=== PATIENT | male | born 1970 | race Caucasian/White ===

== ENCOUNTER 2018-01-31 23:59 | Emergency (ER) | payer SELFPAY ==
[~2018-01-31] VITALS: Ht 170.2 cm; Wt 89.4 kg
[2018-02-01 00:04] VITALS: Ht 170.2 cm; Wt 89.4 kg
[2018-02-01 05:00] VITALS: BP 120/62
== END 2018-02-01 04:50 | disposition home or self-care (01) ==
LOC: ED 23:59
DX: S62.521A Displaced fracture of distal phalanx of right thumb, initial encounter for closed fracture (principal); W31.89XA Contact with other specified machinery, initial encounter; Y93.89 Activity, other specified; Y92.89 Other specified places as the place of occurrence of the external cause; Y99.8 Other external cause status
CPT/HCPCS: 90715; J0690; J2001; Q0092